=== PATIENT | female | born 1935 | race Caucasian/White ===

== ENCOUNTER → 2017-11-27 | Outpatient (CLI) | payer MEDICARE ==
--- NOTE | 2017-11-27 22:52 | CT ---
EXAMINATION TYPE: CT brain wo/w con DATE OF EXAM: 11/27/2017 COMPARISON: NONE HISTORY: Memory loss and headache per patient. Syncope per order. CT DLP: 2149 mGycm Automated exposure control for dose reduction was used. CONTRAST: CT scan of the head is performed without and with IV Contrast, patient injected with 80 mL of Isovue 300. FINDINGS: Noncontrast images show no acute intracranial hemorrhage or midline shift. The ventricles and sulci are within normal limits in size. Some vague areas of low-attenuation in the periventricular white ma tter are present bilaterally. Postcontrast images show no suspicious enhancing intraparenchymal mass. Scleral calcification in both globes is present. The visualized paranasal sinuses are clear. IMPRESSION: Moderate nonspecific white matter changes most likely on basis of product of chronic smal l vessel ischemic change. No suspicious enhancement is present.
== END ==
LOC: RADCTMAIN 18:16
PROVIDERS: ATTEND Family Medicine
DX: I67.82 Cerebral ischemia (principal); I48.1 Persistent atrial fibrillation; R55 Syncope and collapse
CPT/HCPCS: 82565; 84520; 70470; 36415; Q9967

== ENCOUNTER → 2017-12-08 | Outpatient (CLI) | payer MEDICARE ==
--- NOTE | 2017-12-08 10:24 | US ---
EXAMINATION TYPE: US carotid duplex BILAT DATE OF EXAM: 12/08/2017 COMPARISON: NONE CLINICAL HISTORY: R55 Syncope, I48.1 Atrial fibrillation. EXAM MEASUREMENTS: RIGHT: Peak Systolic Velocity (PSV) cm/sec ----- Right CCA: 68.0 ----- Right ICA: 98.0 ----- Right ECA: 85.0 ICA/CCA ratio: 1.4 RIGHT: End Diastole cm/sec ----- Right CCA: 18.5 ----- Right ICA: 12.3 ----- Right ECA: 7.3 LEFT: Peak Systolic Velocity (PSV) cm/sec ----- Left CCA: 85.0 ----- Left ICA: 87.8 ----- Left ECA: 95.3 ICA/CCA ratio: 1.0 LEFT: End Diastole cm/sec ----- Left CCA: 30.1 ----- Left ICA: 23.1 ----- Left ECA: 9.4 VERTEBRALS (direction of flow): Right Vertebral: Antegrade Left Vertebral: Antegrade Rhythm: Normal IMPRESSION: Minimal plaque visualized. No elevated velocities. No significant stenosis. Criteria for Assigning % of Stenosis / Diameter reduction (Estimation based on the indirect measurements of the internal carotid artery velocities (ICA PSV). 1. Normal (no stenosis)=ICA PSV < 125 cm/s: ratio < 2.0: ICA EDV<40 cm/s. 2. Less than 50% stenosis=ICA PSV < 125 cm/s: ratio < 2.0: ICA EDV<40 cm/s. 3. 50 to 69% stenosis=ICA PSV of 125 to 230 cm/s: ration 2.0 ? 4.0: ICA EDV 40-100 cm/s. 4. Greater than 70% stenosis to near occlusion= ICA PSV > 230 cm/s: ratio > 4.0: ICA EDV > 100 cm/s. 5. Near occlusion= ICA PSV velocities may be low or undetectable: variable ratio and ICA EDV. 6. Total occlusion=unable to detect flow.
--- NOTE | 2017-12-08 12:40 | EST ---
EXERCISE STRESS DATE OF SERVICE: 12/08/2017 AGE: 82 SEX: Female HT: 60 WT: 166 PROTOCOL: Carlos STAGE: I DURATION OF EXERCISE: 1-1/2 minutes HEART RATE REST: 78 BLOOD PRESSURE REST: 142/99 MAXIMUM HEART RATE ACHIEVED: 130 MAXIMUM BLOOD PRESSURE: 189/85 85% MPHR: 118 100% MPHR: 139 METS: 2 INDICATIONS: Shortness of breath. CLINICAL INFORMATION: Baseline EKG shows sinus rhythm, normal axis, normal intervals. Patient exercised on Carlos protocol for a total of 1-1/2 minutes achieving 2 METs, 93% of predicted maximal heart rate without chest pain. Occasional PVCs were noted at this level of activity. Test was stopped due to extreme shortness of breath. No significant ST-segment depression is noted. CONCLUSIONS: 1. Extremely poor exercise tolerance. 2. Negative stress test by EKG criteria. CHIN / NATASHAN: [id number] /
== END | disposition home or self-care (01) ==
LOC: RADUSMAIN 09:02
PROVIDERS: ATTEND Family Medicine
DX: R55 Syncope and collapse (principal); I48.1 Persistent atrial fibrillation
CPT/HCPCS: 93017; 93270; 93271; 93880

== ENCOUNTER → 2018-12-28 | Outpatient (CLI) | payer MEDICARE ==
--- NOTE | 2018-12-28 12:20 | XR ---
EXAMINATION TYPE: XR cervical spine comp DATE OF EXAM: 12/28/2018 TECHNIQUE: Frontal, lateral, oblique, and open mouth view of the cervical spine are obtained. HISTORY: M54.2 M54.5 neck pain. COMPARISON: None FINDINGS: The cervical spine is visualized in its entirety from C1 thru the bottom of C7 level, it i s grade 1 retrolisthesis of C5 on C6 without evidence of acute fracture or dislocation. Osseous struc tures are demineralized. The pre-vertebral soft tissue appears within normal limits. The C1-C2 artic ulation is within normal limits on the open mouth view. Vertebral body heights are maintained. Moder ate to advanced disc space narrowing with endplate sclerosis and moderate anterior spurring C5-C6 and C6-C7 levels is present. There are uncovertebral facet degenerative changes bilaterally at multiple levels causing multilevel neural foraminal narrowing The oblique images are within normal limits. Ove rlying soft tissue is unremarkable. IMPRESSION: As above.
--- NOTE | 2018-12-28 12:22 | XR ---
EXAMINATION TYPE: XR lumbosacral spine min 4V DATE OF EXAM: 12/28/2018 CLINICAL HISTORY: Low back pain for years. TECHNIQUE: Frontal, lateral, and oblique images of the lumbar spine are obtained. COMPARISON: None. FINDINGS: Osseous structures are demineralized which is noticed to lower radiographic sensitivity. T here are 5 lumbar type vertebral bodies identified. The lumbar spine shows levoconvex scoliosis cent ered at L2-L3 level without evidence of acute fracture or dislocation. Vertebral body height are with in normal limits. Moderate to advanced disc space narrowing with vacuum disc phenomenon along with anterior moderate spurring and endplate sclerosis L2-L3 level is seen. There is moderate disc space n arrowing L3-L4 level with mild anterior spurring. There is mild to moderate disc space narrowing L4-L 5 level . There is moderate right lateral spurring from the lumbar spine The oblique images appear wi thin normal limits. Facet arthropathy lower lumbar levels is seen. Vascular calcification overlying a bdominal aorta is noted. IMPRESSION: As above.
== END | disposition home or self-care (01) ==
LOC: RADXRMAIN 11:47
PROVIDERS: ATTEND Family Medicine
DX: M99.71 Connective tissue and disc stenosis of intervertebral foramina of cervical region (principal); M99.73 Connective tissue and disc stenosis of intervertebral foramina of lumbar region; M48.02 Spinal stenosis, cervical region; M43.12 Spondylolisthesis, cervical region; M47.812 Spondylosis without myelopathy or radiculopathy, cervical region; M46.96 Unspecified inflammatory spondylopathy, lumbar region; M41.86 Other forms of scoliosis, lumbar region
CPT/HCPCS: 72050; 72110

== ENCOUNTER → 2024-02-16 | Outpatient (CLI) | payer MEDICARE | END | disposition home or self-care (01) | LOC: LABPRL 08:55 | PROVIDERS: ATTEND Family Medicine | DX: Z00.00 Encounter for general adult medical examination without abnormal findings (principal); I10 Essential (primary) hypertension; E78.5 Hyperlipidemia, unspecified; E11.9 Type 2 diabetes mellitus without complications; E55.9 Vitamin D deficiency, unspecified; N39.0 Urinary tract infection, site not specified | CPT/HCPCS: 80053; 80061; 82306; 83036; 84439; 84443; 85025; 87086 ==